=== PATIENT | female | born 1955 | race Two or more races ===

== ENCOUNTER → 2016-08-21 | Outpatient (CLI) | payer OTHER ==
[~2016-08-21] MED LIST: ASPI325T32 PO; HYDR-3498 PO; METO25TA7 PO; TRAM50TA2 PO
--- NOTE | 2016-08-21 16:20 | RADRPT ---
PROCEDURE: XR left knee. CLINICAL INDICATION: Knee pain. TECHNIQUE: AP weightbearing, lateral weightbearing and sunrise views are available for review. COMPARISON: 12/16/2015 FINDINGS: There is a total knee replacement. There is no evidence of loosening of the prosthesis. There is no evidence of hardware failure. The osseous structures are normal in mineralization, architecture and alignment No acute fracture or dislocation is seen.No osseous lesions are identified. The soft tiss ues are unremarkable . IMPRESSION: Unremarkable total knee replacement. RPTAT: HGDB .Chris Way MD, MD Date Time Electronically viewed and signed by .Chris Way MD, MD on 08/21/2016 16:20 .B/
== END | disposition home or self-care (01) ==
LOC: HKI 14:00
PROVIDERS: ATTEND Orthopaedic Surgery
DX: Z09 Encounter for follow-up examination after completed treatment for conditions other than malignant neoplasm (principal); Z96.652 Presence of left artificial knee joint; M17.11 Unilateral primary osteoarthritis, right knee; M25.561 Pain in right knee
CPT/HCPCS: 73562; Z7500; G0463

== ENCOUNTER → 2018-07-12 | Outpatient (CLI) | payer OTHER ==
[~2018-07-12] MED LIST changes: +METO-335 PO; -METO25TA7 PO
--- NOTE | 2018-07-12 15:50 | HKNOTE ---
DATE OF SERVICE: HISTORY OF PRESENT ILLNESS: Ms. Hernandez returned today for initial evaluation. She is complaining of severe pain in the right knee. The pain has been worsening over the last year. She uses a cane for ambulation. She has not had previous treatment. She had a previous left total knee arthroplasty by Dr. Gtz. PHYSICAL EXAMINATION: Gait: Antalgic gait, reciprocal gait pattern. Right knee: No effusion, warmth. Alignment is severe varus. Range of motion is 0 to 115 degrees. Medial and lateral joint line tenderness. Negative Scot, negative anterior drawer, negative posterior drawer, stable to varus valgus stress. Motor strength is 5/5 quadriceps, tibialis anterior, gastroc soleus. IMAGING: X-rays of the right knee demonstrate advanced tricompartmental degenerative changes with loss of joint space in the medial, lateral and patellofemoral joints. There are peripheral osteophytes, subchondral sclerosis. IMPRESSION: A 62-year-old female with advanced tricompartmental right knee osteoarthritis. PLAN: We will request authorization for right knee Monovisc injection. She will follow up in 6 weeks. I also discussed surgical options with the patient should she fail conservative measures. Dictated By: BILLY MARCELINO/DANIS Conf#: [id number] DID#: [id number] BESS
--- NOTE | 2018-07-13 08:10 | RADRPT ---
PROCEDURE: Right knee series CLINICAL INDICATION: Pain TECHNIQUE: AP weightbearing, PA weightbearing, lateral weightbearing and sunrise views of the right knee were obtained. COMPARISON: None FINDINGS: Severe degenerate joint disease right knee involving all compartments worse involving the medial comp artment. No acute fracture or dislocation. No focal bony blastic or lytic lesions. Bones are osteopen ic. No focal bony blastic or lytic lesions. No evidence right knee joint effusion. Soft tissues are u nremarkable. IMPRESSION: 1. Severe degenerate joint disease right knee without acute fracture dislocation or joint effusion. RPTAT:AAJJ Physician Drea Date Time Electronically viewed and signed by Jass Santillan Physician on 07/13/2018 08:10 BM/
== END | disposition home or self-care (01) ==
LOC: HKI 14:33
PROVIDERS: ATTEND Orthopaedic Surgery Adult Reconstructive Orthopaedic Surgery
DX: M17.11 Unilateral primary osteoarthritis, right knee (principal)
CPT/HCPCS: 73564; Z7500; G0463